=== PATIENT | female | born 1985 | race Caucasian/White ===

== ENCOUNTER → 2023-12-30 13:30 | Outpatient (BNVA) | payer OTHER, SELFPAY | PROVIDERS: Visit Provider Physician Assistant Medical | DX: Z13.89 Encounter for screening for other disorder (principal) | CPT/HCPCS: 73630; 99204 ==

== ENCOUNTER 2025-01-24 03:36 | Emergency (ER) | payer OTHER, SELFPAY ==
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
[2025-01-24 03:40] VITALS: BP 128/87; PULSE 74; RESP 20; TEMP 530; TEMP 986; O2SAT 96; BMI 32.8
--- OUTSIDE RECORDS SUMMARY | 2025-01-24 03:48 | XMS_ITS | Clinical Summary ---
Author Organization Formerly [facility] Address [address] [place] [address] Care Team Providers Care Assignment Clerk Name Role Phone Geraldo Hamilton MD Unavailable Fermín Hopson MD Unavailable [phone] Ramsey Richards MD Primary Care Provider [phone] Kev Bliss MD Unavailable [phone] Allergies Active Allergy Reactions Criticality Noted Date Comments Chicken Allergy GI Intolerance/Nausea/V omiting Low 05/24/2020 Egg-Derived Products GI Intolerance/Nausea/V omiting Low 05/24/2020 Gluten Other (See Comments) 05/24/2020 Lactose GI Intolerance/Nausea/V omiting Low 05/24/2020 Sulfa Antibiotics Rash/Dermatitis Low 11/23/2017 Shortness of breath Sulfamethoxazole-Trimet hoprim Rash/Dermatitis Low 10/12/2017 Medications Multiple Vitamin (MULTIVITAMIN) capsule Take 1 capsule by mouth daily. Active vitamin with iron and folic acid ( PLUS) 27-1 MG Tab Take 1 tablet by mouth daily. Active Custom CompoundIndication s:Rectal pain,Anal fissure Nifedipine .3% and lidocaine 1.5% ointment apply TID 30 gm/mL 1 8 Active acyclovir (ZOVIRAX) 200 mg capsule Take by mouth. 4 Active Slynd 4 MG Tab Take 1 tablet by mouth. 4 Active cholecalciferol (VITAMIN D3) 1000 units capsule Take 1,000 Units by mouth daily. Active sertraline (ZOLOFT) 50 MG tablet 1 TABLET DIRECTED DAILY 4 Active ondansetron (ZOFRAN-ODT) 4 MG disintegrating tabletIndications: Gastroenteritis Take 1 tablet (4 mg total) by mouth 3 times daily (every 8 hours) as needed for nausea or vomiting. Place tablet on tongue to dissolve. 21 tablet 4 Active loperamide (IMODIUM A-D) 2 MG capsuleIndications :Gastroenteritis Take 1 capsule (2 mg total) by mouth 4 (four) times a day as needed for diarrhea. 30 capsule 4 Active Active Problems No known active problems Family History Medical History Relation Name Comments Diabetes Father Diabetes Mother Colon cancer Paternal Aunt Relation Name Status Comments Father Mother Paternal Aunt Social History Tobacco Use Types Packs/Day Years Used Date Smoking Tobacco: Never Smokeless Tobacco: Never Alcohol Use Standard Drinks/Week Comments Yes 0 (1 standard drink = 0.6 oz pur e alcohol) Comments Unknown Sex and Gender Information Value Date Recorded Sex Assigned at Not on file Legal Sex Female 6:21 PM EDT Gender Identity Not on file Sexual Orientation Not on file Last Filed Vital Signs Vital Sign Reading Time Taken Comments Blood Pressure 118/79 04/04/2024 8:16 AM EST Pulse 120 04/04/2024 8:16 AM EST Temperature 36.8 C (98.2 F) 04/04/2024 8:16 AM EST Respiratory Rate 18 04/04/2024 8:16 AM EST Oxygen Saturation 98% 04/04/2024 8:16 AM EST Inhaled Oxygen Concentration - - Weight 65.8 kg (145 lb) 11/23/2017 8:39 AM EDT Height 165.1 cm (5' 5 ) 11/23/2017 8:39 AM EDT Body Mass Index 24.13 11/23/2017 8:39 AM EDT Plan of Treatment Health Maintenance Due Date Last Done Comments HIV Screening 2000 DTaP/Tdap/Td Vaccines (1 - Tdap) 2006 Hepatitis B Vaccines (1 of 3 - 19+ 3-dose series) 2006 Influenza Vaccine 11/17/2024 01/20/2022, 01/29/2021 COVID-19 Vaccine (2024-2 6 season) 2024 04/10/2021, 04/30/2020, 04/09/2020 Pap Smear (Ages 21-65) 08/12/2027 , 08/05/2023, 03/16/2018 Hepatitis C Virus Screening Completed 08/22/2015 HPV Vaccines (No Doses Required) Completed Pneumococcal Vaccine: Pediatric (0-5 Years) and At-Risk Patients (6 to 49 Years) Aged Out No longer eligible b ased on patient's age to complete this topic Procedures Procedure Name Priority Date/Time Associated Diagnosis Comments THINPREP PAP TEST (MAINTENANCE SHOP WELDER) WITH HPV REFLEX, GC/CT Routine 08/11/2024 2:26 PM EDT HXHOCC HEPATITIS C ANTIBODY Routine 08/22/2015 8:27 AM EDT from Last 3 Months or Most Recently Relevant to Health Maintenance Results * ThinPrep Pap Test (1St Grade Teacher) with HPV Reflex, GC/CT (08/11/2024 2:26 PM EDT) Report Report [facility] Comment: Final Gynecological Cytology Report ThinPrep Pap Test with HPV Reflex, GC/Chlamydia SPECIMEN ADEQUACY: SATISFACTORY FOR EVALUATION; ENDOCERVICAL/TRANSFORMATION ZONE COMPONENT PRESENT. INTERPRETATION: NEGATIVE FOR INTRAEPITHELIAL LESION OR MALIGNANCY. Electronically Signed: Janny Srivastava CT (ASCP) CLINICAL INFORMATION: LMP: NG Clinical History: HXP Biopsy Date: NG Specimen Source: Cervix, Endocervix Previous Pap Date: NG CPT Codes: 26684 ICD Codes: Z12.4 08/11/2024 2:26 PM EDT 08/12/2024 1:22 AM EDT us Kev Bliss MD LAB AMB PATH/CYTO ORDERABL ES Final Result [facility] [address] [place], [place] * Hepatitis C Antibody (08/22/2015 8:27 AM EDT) Hepatitis C AB 0.02 0.00 - 0.99 CERNER CONVERSION Hepatitis C Antibody Negative Negative CERNER CONVERSION 08/22/2015 8:27 AM EDT us Geraldo Hamilton MD HX LAB Final Result Performing Organization Address City/[facility]/ZIP Co de Phone Number CERNER CONVERSION from Last 3 Months or Most Recently Relevant to Health Maintenance Insurance [facility] - EMPLOYEE PLAN POWERED BY [employer] Care Teams Assignment Clerk Relationship Specialty Start Date [place] [address] PCP - General Internal Medicine 10/31/23 Kev Bliss MD [address] [place] [address] PCP - [facility] Employee Attributed 07/18/24 [place] [address] Physician Obstetrics and Gynecology 11/23/17 Fermín [place] [address] Endocrinology 11/23/17
--- OUTSIDE RECORDS SUMMARY | 2025-01-24 03:48 | XMS_ITS ---
Author Name [facility] Organization Unknown History of Medication Use Medication Directions Dispensed Refills Start Date End Date Status ondansetron (ZOFRAN-ODT) disintegrating tablet 4 mg 4 024 completed loperamide (IMODIUM A-D) 2 MG capsule Take 1 capsule (2 mg total) by mouth 4 (four) times a day as needed for diarrhea. 4 active sertraline (ZOLOFT) 50 MG tablet 1 TABLET DIRECTED DAILY 4 active ondansetron (ZOFRAN-ODT) 8 MG disintegrating tablet Take 1 tablet (8 mg total) by mouth 3 times daily (every 8 hours) as needed for nausea or vomiting. Place tablet on tongue and to dissolve. 4 024 active acyclovir (ZOVIRAX) 200 mg capsule Take by mouth. 4 active Slynd 4 MG Tab Take 1 tablet by mouth. 4 active acyclovir 400 mg tablet TAKE 1 TABLET BY MOUTH 3 TIMES A DAY FOR 10 DAYS. 3 023 completed cefpodoxime 100 mg tablet Take 1 tablet (100 mg total) by mouth 2 (two) times a day for 10 days. 2 022 completed nitrofurantoin monohydrate/macrocrysta ls 100 mg capsule Take 1 capsule (100 mg total) by mouth 2 (two) times a day for 5 days. 2 022 completed escitalopram 5 mg tablet Take 1 tablet (5 mg total) by mouth daily. 2 022 completed buspirone 5 mg tablet Take 1 tablet (5 mg total) by mouth 2 (two) times a day. 2 022 completed Uribel 118 mg-10 mg-40.8 mg-36 mg capsule Take 1 tablet 3 times a day by oral route as directed. 2 024 completed Ubrelvy 100 mg tablet Take 100 mg by mouth 2 (two) times a day as needed. 2 023 completed amitriptyline 10 mg tablet Take 1 tablet (10 mg total) by mouth every night at bedtime. Take 1 tab at bedtime for 7 days. If tolerated, increased to 2 tabs nightly 2 022 completed ondansetron HCl 4 mg tablet Take 1 tablet (4 mg total) by mouth every 8 (eight) hours as needed for nausea. 2 022 completed metoclopramide 10 mg tablet Take 1 tablet (10 mg total) by mouth daily as needed. 1 022 completed ergocalciferol (vitamin D2) 1,250 mcg (50,000 unit) capsule Take 1 capsule (50,000 Units total) by mouth once a week. 1 022 completed sumatriptan 50 mg tablet Take 1 pill at the onset of headaches, can take a second pill after 2 hours if headache still persist 1 022 completed topiramate 25 mg sprinkle capsule 1 pill at bedtime for 1 week, then increase to 2 pills at bedtime 1 021 completed Custom Compound Nifedipine .3% and lidocaine 1.5% ointment apply TID 8 active Slynd 4 mg (28) tablet Take 1 tablet every day by oral route. 6 024 active Keflex 500 mg capsule TAKE 1 CAPSULE BY ORAL ROUTE EVERY 12 HOURS 3 014 completed duloxetine 30 mg capsule,delayed release TAKE 1 CAPSULE BY MOUTH EVERY DAY FOR 21 DAYS, DO NOT CRUSH OR CHEW 025 completed loperamide 2 mg capsule TAKE 1 CAPSULE B Y MOUTH 4 TIMES A DAY NEEDED FOR DIARRHEA. 025 completed melatonin 3 mg tablet TAKE 2 TABLETS BY MOUTH AT BEDTIME FOR 14 DAYS 025 completed ondansetron 8 mg disintegrating tablet DISSOLVE 1 TABLET BY MOUTH ON TONGUE 3 TIMES A DAY EVERY 8 HOURS NEEDED FOR NAUSEA AND VOMITING 025 active sertraline 100 mg tablet 1 TABLET DIRECTED DAILY 025 completed amoxicillin 875 mg-potassium clavulanate 125 mg tablet TAKE 1 TABLET BY MOUTH TWICE A DAY UNTIL FINISHED 024 completed ondansetron [address] 1 TABLET ON TOP OF THE TONGUE EVERY 8 HOURS NEEDED 024 completed ondansetron 8 mg disintegrating tablet DISSOLVE 1 TABLET BY MOUTH ON TONGUE 3 TIMES A DAY EVERY 8 HOURS NEEDED FOR NAUSEA AND VOMITING 024 completed sertraline 50 mg tablet 1 TABLET DIRECTED DAILY 024 completed Slynd 4 mg (28) tablet TAKE 1 TABLET BY MOUTH EVERY DAY 024 active acyclovir 400 mg tablet TAKE 1 TABLET BY MOUTH 3 TIMES A DAY FOR 10 DAYS. 024 completed amitriptyline 10 mg tablet 023 completed buspirone 5 mg tablet TAKE 1 TABLET BY MOUTH TWICE A DAY 023 completed cefpodoxime 100 mg tablet TAKE 1 TABLET BY MOUTH TWICE A DAY FOR 10 DAYS 023 completed escitalopram 5 mg tablet TAKE 1 TABLET (5 MG TOTAL) BY MOUTH DAILY. 023 completed metoclopramide 10 mg tablet TAKE 1 TABLET BY MOUTH EVERY DAY NEEDED 023 completed nitrofurantoin monohydrate/macrocrysta ls 100 mg capsule Take 1 capsule twice a day by oral route for 7 days. 023 completed ondansetron HCl 4 mg tablet 023 completed amoxicillin 500 mg capsule TAKE 1 CAPSULE BY MOUTH 3 TIMES A DAY FOR 10 DAYS 022 completed prednisone 10 mg tablet TAKE 4 TABS X 2 DAYS, 3 TABS X 2 DAYS, 2 TABS X 2 DAYS, 1 TAB X 2 DAYS 022 completed amitriptyline 25 mg tablet 021 completed medroxyprogesterone 10 mg tablet Take 1 tablet every day by oral route for 10 days. 021 completed norethindrone acetate 5 mg tablet TAKE 1 TAB 4 TIMES DAILY X4DAYS,THEN 3 TIMES DAILY X3DAYS,THEN TWICE DAILY X2DAYS THEN DAILY [id number] completed sumatriptan 50 mg tablet completed topiramate 25 mg sprinkle capsule completed bromocriptine 5 mg capsule daily. completed cefixime 400 mg capsule completed hydrocodone 10 mg-acetaminophen 325 mg tablet completed phenazopyridine 200 mg tablet completed Slynd 4 mg (28) tablet active acyclovir 200 mg capsule TAKE 1 CAPSULE BY MOUTH EVERY DAY active acyclovir 200 mg capsule TAKE 1 CAPSULE BY MOUTH EVERY DAY active amoxicillin 875 mg-potassium clavulanate 125 mg tablet TAKE 1 TABLET BY MOUTH TWICE A DAY UNTIL FINISHED active aripiprazole 2 mg tablet TAKE 1 TABLET BY MOUTH EVERY DAY active duloxetine 60 mg capsule,delayed release TAKE 1 CAPSULE BY MOUTH EVERY DAY IN THE MORNING active ergocalciferol (vitamin D2) 1,250 mcg (50,000 unit) capsule active lamotrigine 100 mg tablet TAKE 1 TABLET BY MOUTH EVERY DAY active lamotrigine 25 mg tablet PLEASE SEE ATTACHED FOR DETAILED DIRECTIONS active lorazepam 0.5 mg tablet TAKE 1 TABLET BY MOUTH ONCE A DAY NEEDED FOR ANXIETY active meclizine 25 mg tablet TAKE 1 TABLET BY MOUTH 3 TIMES A DAY NEEDED FOR DIZZINESS OR NAUSEA. active meclizine 25 mg tablet TAKE 1 TABLET BY MOUTH 3 TIMES A DAY NEEDED FOR DIZZINESS OR NAUSEA. active ondansetron [address] 1 TABLET ON TOP OF THE TONGUE EVERY 8 HOURS NEEDED active sertraline 100 mg tablet Take 1 tablet every day by oral route. active sertraline 50 mg tablet 1 TABLET DIRECTED DAILY active trazodone 50 mg tablet TAKE 1-2 TABLETS BY MOUTH AT BEDTIME NEEDED FOR INSOMNIA active None recorded. (No additional sig information) completed acyclovir 200 mg capsule TAKE 1 CAPSULE BY MOUTH EVERY DAY TAKE 1 CAPSULE BY MOUTH EVERY DAY completed cholecalciferol (VITAMIN D3) 1000 units capsule Take 1,000 Units by mouth daily. active ergocalciferol (vitamin D2) 1,250 mcg (50,000 unit) capsule ergocalciferol (vitamin D2) 1,250 mcg (50,000 unit) capsule completed Multiple Vitamin (MULTIVITAMIN) capsule Take 1 capsule by mouth daily. active vitamin with iron and folic acid ( PLUS) 27-1 MG Tab Take 1 tablet by mouth daily. active Slynd 4 mg (28) tablet Take 1 tablet every day by oral route. Take 1 tablet every day by oral route. completed Uribel 118 mg-10 mg-40.8 mg-36 mg capsule Take 1 tablet 3 times a day by oral route as directed. Take 1 tablet 3 times a day by oral route as directed. completed Allergies Allergen Reaction Severity Comment Documented Date Source Status LACTOSE GI INTOLERANCE/N AUSEA/VOMITIN G 05/24/2020 [facility] active SULFA ANTIBIOTICS RASH/DERMATIT IS Shortness of breath 11/23/2017 [facility] active SULFAMETHOXAZOLE-TRI METHOPRIM RASH/DERMATIT IS 10/12/2017 [facility] active TRIMETHOPRIM DIZZINESS 05/01/2013 [facility] comple malka EGG-DERIVED PRODUCTS GI INTOLERANCE/N AUSEA/VOMITIN G [facility] GLUTEN OTHER (SEE COMMENTS) [facility] SULFAMETHOXAZOLE DIZZINESS [facility] BACTRIM [facility] CHICKEN DERIVED DIARRHEA mild [facility] MILK (SUBSTANCE) ABDOMINAL PAIN mild [facility] SUBSTANCE WITH SULFONAMIDE STRUCTURE AND ANTIBACTERIAL MECHANISM OF ACTION (SUBSTANCE) [facility] SULFA (SULFONAMIDE ANTIBIOTICS) [facility] Problems Problem Status Onset Date Problem Type Date of Resolution Source Migraine active 5 ProblemAct [facility] Anal fissure active 2020-04-19 2 ProblemAct [facility] Hyperprolactinemia active 1 ProblemAct [facility] Atrial fibrillation active 5 ProblemAct [facility] Vomiting and diarrhea active EncounterDiagnosis Act [facility] Gastroenteritis active EncounterDiagnosisAct [facility] Hypercholesterolemia active 2023-03-20 2 ProblemAct [facility] 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 0 ProblemAct [facility] Migraine with aura active 2021-02-18 3 ProblemAct [facility] Allergic rhinitis caused by pollen active 2020-08-18 5 ProblemAct [facility] Depressive disorder active 2024-03-19 1 ProblemAct [facility] Prolactin level above reference range active 2020-02-19 0 ProblemAct [facility] Herpes labialis active 2024-12-1 1 ProblemAct [facility] Obesity active 6 ProblemAct [facility] Endometriosis (clinical) active 2017-09 6 ProblemAct [facility] Benign paroxysmal positional vertigo active 2020-08-18 5 ProblemAct [facility] Immunizations Vaccine Date Source Lot Number Status HPV9 02/25/2024 [facility] [id number] completed influenza, seasonal, injecta ble, preservative free 01/25/2024 [facility] completed HPV9 10/15/2023 [facility] [id number] completed HPV9 08/05/2023 [facility] [id number] completed SARS-COV-2 (COVID-19) vaccin e, mRNA, spike protein, LNP, preservative free, 30 mcg/0.3mL dose 02/03/2023 [facility] completed influenza, seasonal, injecta ble, preservative free 02/02/2023 [facility] completed Influenza, injectable, quadr ivalent, preservative free 01/20/2022 [facility] completed hepatitis B vaccine, pediatr ic or pediatric/adolescent dosage 05/12/2021 [facility] comp leted SARS-COV-2 (COVID-19) vaccin e, mRNA, spike protein, LNP, preservative free, 100 mcg/0.5mL dose 04/10/2021 [facility] [id number] completed influenza, high-dose seasona l, quadrivalent, preservative free 01/29/2021 [facility] completed SARS-COV-2 (COVID-19) vaccin e, mRNA, spike protein, LNP, preservative free, 30 mcg/0.3mL dose 04/30/2020 [facility] [id number] completed COVID-19, mRNA, LNP-S, PF, 3 0 mcg/0.3 mL dose 04/29/2020 [facility] completed SARS-COV-2 (COVID-19) vaccin e, mRNA, spike protein, LNP, preservative free, 30 mcg/0.3mL dose 04/09/2020 [facility] [id number] completed tuberculin skin test; purifi ed protein derivative solution, intradermal 02/15/2020 [facility] [id number] completed tetanus toxoid, reduced diph theria toxoid, and acellular pertussis vaccine, adsorbed 02/26/2015 [facility] completed measles, mumps and rubella virus vaccine 02/28/2013 [facility] completed Encounters Encounter Type Encounter Reason Primary Diagnosis Location Date Ambulatory Encounter for immunization Encounter for immunization [facility] 08/11/2024 Ambulatory Generalized Body Aches Generaliz ed Body Aches [facility] 04/04/2024 Ambulatory Encounter for test, result negative Encounter for test, result negative [facility] 02/25/2024 Ambulatory Noninfective gastroenteritis and colitis, unspecified Noninfective gastroenteritis and colitis, unspecified [facility] 10/31/2023 Ambulatory Encntr for driver's license reviewing officer exam (general) (routine) w/o abn findings Encntr for driver's license reviewing officer exam (general) (routine) w/o abn findings [facility] 10/15/2023 Ambulatory Encounter for surveillance of contraceptives, unspecified Encounter for surveillance of contraceptives, unspecified [facility] 08/05/2023 Ambulatory [facility], [facility] 05/05/2023 Ambulatory [facility] 06/15/2022 Ambulatory [facility] 04/23/2022 Ambulatory [facility] 05/28/2021 Ambulatory [facility] 03/05/2021 Care Team Organization Name Specialty Phone Email Start Date End [facility] 04/03/2024 [facility] 10/31/2023 07/05/2024 [facility] JC [facility]URA Primary Care 10/31/2023 [facility] Abigail Booker Primary [facility] 01/20/2023 12/06/2023 [facility] NO PCP Primary Care 02/28/2022 02/28/2022 [facility] JC VENTURA Primary Care 02/24/2022 12/06/2023 [facility] 05/28/2021 [facility] 03/05/2021 05/28/2021
--- NOTE | 2025-01-24 04:32 | PC.NURSE ---
pt taken to x-ray,medicated per jun.
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
[2025-01-24 06:00] VITALS: BP 104/67; PULSE 63; RESP 20; TEMP 36.8; O2SAT 96
[2025-01-24 06:04] VITALS: BP 104/67; PULSE 63; RESP 20; TEMP 36.8; O2SAT 96
== END 2025-01-24 06:04 | disposition home or self-care (01) ==
PROVIDERS: Emergency Provider Emergency Medicine; PCP Internal Medicine
DX: S00.83XA Contusion of other part of head, initial encounter (principal); S20.212A Contusion of left front wall of thorax, initial encounter; Y04.2XXA Assault by strike against or bumped into by another person, initial encounter; Y93.9 Activity, unspecified; Y92.239 Unspecified place in hospital as the place of occurrence of the external cause; Y99.0 Civilian activity done for income or pay
CPT/HCPCS: 30000; 70100; 71045; 99283; 99284

== ENCOUNTER → 2025-01-24 04:05 | Outpatient (BNV) | payer OTHER, SELFPAY | PROVIDERS: Emergency Provider Emergency Medicine; PCP Internal Medicine; Visit Provider Radiology Diagnostic Radiology | DX: S00.83XA Contusion of other part of head, initial encounter (principal); R07.89 Other chest pain; Y04.8XXA Assault by other bodily force, initial encounter | CPT/HCPCS: 70100; 71045 ==

== ENCOUNTER → 2025-01-26 09:24 | Outpatient (BNVA) | payer OTHER, SELFPAY | PROVIDERS: PCP Internal Medicine; Visit Provider Physician Assistant | DX: Z13.89 Encounter for screening for other disorder (principal) | CPT/HCPCS: 99204 ==

== ENCOUNTER → 2025-02-01 14:46 | Outpatient (BNVA) | payer OTHER, SELFPAY | PROVIDERS: PCP Internal Medicine; Visit Provider Physician Assistant | DX: Z13.89 Encounter for screening for other disorder (principal) | CPT/HCPCS: 99213 ==

== ENCOUNTER → 2025-02-08 08:29 | Outpatient (BNVA) | payer OTHER, SELFPAY | PROVIDERS: PCP Internal Medicine; Visit Provider Physician Assistant | DX: Z13.89 Encounter for screening for other disorder (principal) | CPT/HCPCS: 99213 ==

== ENCOUNTER 2025-03-19 13:00 | Outpatient (RCR) | payer OTHER, SELFPAY ==
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
--- NOTE | 2025-03-19 15:33 | MHC.PT.DC ---
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 Date of Surgery: Date of Evaluation: 02/28/25 Date of Discharge: 03/19/25 Treatments to Date: 3 Cancellations to Date: No Shows to Date: Discharge Status: Achieved Goals Improved Function Independent with HEP Discharge Summary: Lucila has been an active and motivated participant in her therapy in and out of the clinic; she states she is ready for DC at this time as she has met her therapeutic goals, is improved of her pain and function, and is I with her home program. Electronically signed by: Dennis Aragon PT. Please sign and return to therapist. Thank you for your referral.
== END 2025-03-19 15:34 | disposition home or self-care (01) ==
LOC: HO.PT 13:00
PROVIDERS: PCP Internal Medicine; Visit Provider Physician Assistant
DX: S09.93XD Unspecified injury of face, subsequent encounter (principal)
CPT/HCPCS: 97110; 97140; 97161